=== PATIENT | male | born 1995 | race Caucasian/White ===

== ENCOUNTER 2018-03-11 10:09 | Emergency (ER) | payer OTHER ==
[~2018-03-11] VITALS: Ht 170.1 cm; Wt 88.5 kg
[~2018-03-11 10:09] MED LIST: AMOXICILLIN,AM875 MG PO; AMOXIL250 M1 PO; AUGMENTIN 400100 ML PO; KEFLEX500 MG PO; MOTRIN400 MG PO; MOTRIN600 MG PO; PRELONE15 MG/5 ML PO; PRILOSEC20 MG PO; ZOFRAN ODT4 MG SL
== END 2018-03-11 12:05 | disposition home or self-care (01) ==
LOC: ED 10:09
DX: S50.01XA Contusion of right elbow, initial encounter (principal); W22.8XXA Striking against or struck by other objects, initial encounter; Y93.89 Activity, other specified; Y92.69 Other specified industrial and construction area as the place of occurrence of the external cause; Y99.0 Civilian activity done for income or pay

== ENCOUNTER 2018-12-06 12:56 | Emergency (ER) | payer OTHER ==
[~2018-12-06] VITALS: Ht 170.1 cm; Wt 90.7 kg
== END 2018-12-06 14:37 | disposition home or self-care (01) ==
LOC: ED 12:56
DX: S67.21XA Crushing injury of right hand, initial encounter (principal); S67.01XA Crushing injury of right thumb, initial encounter; S67.190A Crushing injury of right index finger, initial encounter; S67.192A Crushing injury of right middle finger, initial encounter; W23.0XXA Caught, crushed, jammed, or pinched between moving objects, initial encounter; Y93.89 Activity, other specified; Y92.69 Other specified industrial and construction area as the place of occurrence of the external cause; Y99.0 Civilian activity done for income or pay

== ENCOUNTER → 2022-08-07 | Outpatient (CLI) | payer OTHER ==
[2022-08-07 08:40] LABS: HEMATOCRIT 48.1 % (42.0-52.0); MEAN CELL VOLUME 91.6 fl (80.0-94.0); MEAN CORPUSCULAR HGB 30.3 pg (27.0-31.0); MEAN CORPUSCULAR HGB CONC 33.1 g/dl (33.0-37.0); MEAN PLATELET VOLUME 9.4 fl (9.6-12.3); RED BLOOD COUNT 5.25 10*6/uL (4.50-5.90); RED CELL DISTRI WIDTH 12.3 % (0-14.5); WHITE BLOOD COUNT 5.7 10*3/uL (4.8-10.8)
[2022-08-07 09:38] LABS: ALKALINE PHOSPHATASE 62 U/L (46-116); BUN 9 mg/dl (9-23); CHLORIDE 102 mmol/L (98-107); CHOLESTEROL 157 mg/dL (<200); LDL CHOLESTEROL 92 mg/dL (9-159); POTASSIUM 4.9 mmol/L (3.4-5.1); SGPT/ALT 37 U/L (10-49); TOTAL PROTEIN 7.4 gm/dL (6.0-8.0); TRIGLYCERIDES 60 mg/dl (<150)
== END | disposition home or self-care (01) ==
LOC: LAB 08:04
PROVIDERS: ATTEND Family Medicine
DX: Z00.00 Encounter for general adult medical examination without abnormal findings (principal); Z13.220 Encounter for screening for lipoid disorders; E55.9 Vitamin D deficiency, unspecified; R53.83 Other fatigue